=== PATIENT | female | born 1995 | race Two or more races ===

== ENCOUNTER 2024-11-17 05:25 | Day surgery (SDC) | payer OTHER ==
[2024-11-13 12:33] VITALS: BMI 23.3
[2024-11-17] MEDS ORDERED: PROPOFOL 20 ML ONE (10:49)
[2024-11-17] MEDS ORDERED: ONDANSETRON 4 MG/2 ML VIAL ONE (10:49)
[2024-11-17] MEDS ORDERED: LIDOCAINE HCL 2% 100 MG/5 ML DISP.SYRIN ONE (10:49)
[2024-11-17] MEDS ORDERED: MIDAZOLAM HCL 2 MG/2 ML SINGLE DOSE VIAL ONE (10:49)
[2024-11-17] MEDS ORDERED: DEXAMETHASONE SOD PHOSPHATE 4 MG/1 ML VIAL ONE (10:49)
[2024-11-17] MEDS: ceFAZolin SODIUM 1 GM VIAL IVPB ONE (11:24)
[2024-11-17] MEDS ORDERED: ONDANSETRON 4 MG/2 ML VIAL IVPUSH PRN (11:30)
[2024-11-17] MEDS ORDERED: ACETAMINOPHEN INJECTION 100 ML ONE (12:26)
[2024-11-17] MEDS: ACETAMINOPHEN 1000 MG/100 ML BAG IVPB ONE (12:30)
[2024-11-17] MEDS: LACTATED RINGERS SOLUTION 1,000 ML IV SCH (13:05)
[2024-11-17 13:51] VITALS: RESP 20
[2024-11-17 15:44] VITALS: BP 99/51; PULSE 87; TEMP 98.9
== END 2024-11-17 15:10 | disposition home or self-care (01) ==
LOC: JASU-SURG 05:25
PROVIDERS: ATTEND Obstetrics & Gynecology
PROC: 0UB98ZZ Excision of Uterus, Via Natural or Artificial Opening Endoscopic (ICD-10-PCS; principal; 2024-11-17 10:00)
DX: N92.1 Excessive and frequent menstruation with irregular cycle (principal); D25.0 Submucous leiomyoma of uterus
CPT/HCPCS: 81025; 88305-TC; 93005; 93010; 94760